=== PATIENT | female | born 1980 | race Caucasian/White ===

== ENCOUNTER 2017-01-25 05:17 | Day surgery (SDC) | payer OTHER ==
[~2017-01-25] VITALS: Ht 165.1 cm; Wt 79.8 kg
[~2017-01-25 05:17] MED LIST: ALPR0.25 PO
[2017-01-25] MEDS ORDERED: LACTATED RINGERS 1,000 ML IV SCH (06:12)
[2017-01-25] MEDS ORDERED: FLUORESCEIN SODIUM 500 MG/5 ML ONE (06:26)
[2017-01-25] MEDS ORDERED: BUPIVACAINE/PF 0.25% ONE (06:26)
[2017-01-25] MEDS ORDERED: EPINEPHRINE 1 MG/ML, 1ML ONE (06:26)
[2017-01-25 06:31] LABS: HCG UR LOT HCG7030192
[2017-01-25 06:36] VITALS: BP 111/68
[2017-01-25 06:40] LABS: HCG UR OBC PASS
[2017-01-25] MEDS ORDERED: LIDOCAINE GEL 2%, 5ML ONE (06:49)
[2017-01-25] MEDS ORDERED: MIDAZOLAM 1 MG/ML, 2ML ONE (06:49)
[2017-01-25] MEDS ORDERED: FENTANYL PF 250 MCG/5ML ONE (06:50)
[2017-01-25] MEDS ORDERED: ROCURONIUM 10 MG/ML,10ML ONE (06:51)
[2017-01-25] MEDS ORDERED: CEFAZOLIN 1,000 MG ONE (06:51)
[2017-01-25] MEDS ORDERED: DEXAMETHASONE 4 MG/ML, 1ML ONE ×2 (06:51→07:04)
[2017-01-25] MEDS ORDERED: ONDANSETRON 2MG/ML, 2ML ONE (06:51)
[2017-01-25] MEDS ORDERED: LIDOCAINE-MPF 2% ,5ML ONE ×2 (06:51→08:09)
[2017-01-25] MEDS ORDERED: GLYCOPYRROLATE 0.2MG/1ML, 5ML ONE (06:51)
[2017-01-25] MEDS ORDERED: PROPOFOL 10 MG/ML, 20ML ONE (06:51)
[2017-01-25] MEDS ORDERED: SUCCINYLCHOLINE 20 MG/ML, 10ML ONE (06:51)
[2017-01-25] MEDS ORDERED: NEOSTIGMINE 1 MG/ML, 10ML ONE (06:51)
[2017-01-25] MEDS ORDERED: KETOROLAC 30 MG/1 ML ONE (06:52)
[2017-01-25] MEDS ORDERED: PROMETHAZINE 25 MG/ML, 1ML IV PRN (08:30)
[2017-01-25] MEDS ORDERED: ONDANSETRON 2MG/ML, 2ML IVPush PRN (08:30)
[2017-01-25] MEDS ORDERED: FENTANYL PF 100 MCG/2ML IV PRN (08:30)
[2017-01-25] MEDS ORDERED: LABETALOL 5MG/ML, 20ML IV PRN (08:30)
[2017-01-25] MEDS ORDERED: DIAZEPAM 5 MG/ML, 2ML IVPush PRN (08:30)
[2017-01-25] MEDS ORDERED: ACETAMINOPHEN 325 MG TABLET PO PRN (08:30)
[2017-01-25] MEDS ORDERED: GABAPENTIN 300 MG CAPSULE PO ONE (08:30)
[2017-01-25] MEDS ORDERED: hydrALAzine 20 MG/ML, 1ML IV PRN (08:30)
[2017-01-25] MEDS ORDERED: MIDAZOLAM 1 MG/ML, 2ML IV PRN (08:30)
[2017-01-25] MEDS ORDERED: ALBUTEROL/IPRATROPIUM 2.5MG/0.5MG, 3 ML NPPB PRN (08:30)
[2017-01-25] MEDS ORDERED: MEPERIDINE/PF 25MG/0.5ML IVPush PRN (08:30)
[2017-01-25] MEDS ORDERED: HYDROmorphone 1 MG/ML, 1ML ONE ×2 (08:34→09:37)
[2017-01-25] MEDS ORDERED: GABAPENTIN 400 MG CAPSULE ONE (09:00)
[2017-01-25] MEDS ORDERED: ACETAMINOPHEN 650 MG/20.3 ML UDC ONE (09:15)
[2017-01-25] MEDS ORDERED: FENTANYL PF 100 MCG/2ML ONE (09:15)
[2017-01-25] MEDS ORDERED: OXYcodone 5 MG/5 ML ORAL.SOL UDC ONE (09:16)
[2017-01-25] MEDS: OXYcodone 5 MG/5 ML ORAL.SOL UDC PO PRN ×2 (09:26→13:10)
[2017-01-25] MEDS: HYDROmorphone 1 MG/ML, 1ML IV PRN ×2 (09:39→09:48)
[2017-01-25] MEDS ORDERED: OXYcodone 5 MG/5 ML ORAL.SOL UDC PO PRN (13:00)
== END 2017-01-25 13:30 ==
LOC: OUT 05:17 → MERGE 07:00 → OUT 13:30
PROVIDERS: ATTEND Obstetrics & Gynecology
DX: N92.0 Excessive and frequent menstruation with regular cycle (principal); N83.292 Other ovarian cyst, left side; N83.291 Other ovarian cyst, right side; I25.10 Atherosclerotic heart disease of native coronary artery without angina pectoris; K21.9 Gastro-esophageal reflux disease without esophagitis; Z83.3 Family history of diabetes mellitus; Z85.820 Personal history of malignant melanoma of skin; Z90.710 Acquired absence of both cervix and uterus; Z87.39 Personal history of other diseases of the musculoskeletal system and connective tissue; Z98.890 Other specified postprocedural states; Z98.51 Tubal ligation status; Z91.040 Latex allergy status
CPT/HCPCS: 58552; 81025; 88307; J0171; J0330; J0690; J1100; J1170; J1885; J2250; J2405; J2704; J2710; J3010; J3490; J7120